=== PATIENT | female | born 1970 | race Caucasian/White ===

== ENCOUNTER 2018-04-11 14:51 | Outpatient (CLI) | payer OTHER ==
--- NOTE | 2018-04-12 11:25 | MRI Report ---
Reason: KNEE JOINT PAIN, LEFT Procedure Date: 04/11/2018 Accession Number: [id number] / [id number] Procedure: MRI - Knee LT W/O CPT Code: FULL RESULT: EXAM: LEFT KNEE MRI WITHOUT CONTRAST EXAM DATE: 04/11/2018 04:19 PM. CLINICAL HISTORY: Knee joint pain, left. COMPARISON: KNEE 3 VIEW LT 03/15/2018 8:50 AM. TECHNIQUE: Multiplanar, multisequence T1-weighted and fluid-sensitive sequences of the knee without contrast. Other: None. FINDINGS: Bones: Mild edema of the posterior half of the medial tibial condyle. Small medial and lateral compartment osteophytes. There is subchondral fluid in the medial patella facet. Articular Cartilage: Moderate erosion of the hyaline cartilage of the medial patellar facet. Minimal erosion of the hyaline cartilage of the medial and lateral compartment. Medial Meniscus: The medial meniscus is intact. Lateral Meniscus: The lateral meniscus is intact. Cruciate Ligaments: There is high T1 and T2 signal in the mid substance of the posterior cruciate ligament suggestive of a high-grade partial thickness or full-thickness tear. Collateral Ligaments: The medial collateral and lateral collateral ligamentous structures are intact. Tendons: The quadriceps, patellar, semimembranosus, and popliteus tendons are unremarkable. Musculature: No edema or fatty atrophy. Other: Moderate sized joint effusion. There is a small posterior periarticular cyst measuring approximately 1 x 0.5 x 1.2 cm posterior to the lateral femoral condyle. No loose bodies. The medial and lateral retinacula are intact. The subcutaneous tissues and fat pads are unremarkable. IMPRESSION: 1. 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 Minimal cartilage erosion in the medial and lateral compartments. 2. High-grade partial thickness or full-thickness tear of the mid substance of the PCL. 3. Moderate-sized joint effusion with a posterior periarticular cyst adjacent to the lateral femoral condyle. RADIA MUSCULOSKELETAL RADIOLOGY SECTION
== END 2018-04-11 14:52 | disposition home or self-care (01) ==
LOC: DI 14:51
PROVIDERS: ATTEND Orthopaedic Surgery Sports Medicine
DX: M17.12 Unilateral primary osteoarthritis, left knee (principal); S83.522A Sprain of posterior cruciate ligament of left knee, initial encounter; M25.462 Effusion, left knee; M25.862 Other specified joint disorders, left knee

== ENCOUNTER 2021-07-27 13:57 | Outpatient (CLI) | payer SELFPAY ==
--- NOTE | 2021-07-28 12:13 | Mammography Report ---
BILATERAL DIGITAL SCREENING MAMMOGRAM 3D/2D WITH EXAGGERATED CC: 07/27/2021 CLINICAL: Routine screening. Baseline exam. No prior exams were available for comparison. There are scattered fibroglandular elements in both br easts. No significant masses, calcifications, or other findings are seen in either breast. IMPRESSION: NEGATIVE There is no mammographic evidence of malignancy. A 1 year screening mammogram is recommended. This exam was interpreted at Station ID: [id number]. NOTE: For mammograms, a report in lay terms will be sent to the patient. Approximately 15% of breast malignancies will not be visualized mammographically. In the management of a palpable breast mass, a negative mammogram must not discourage biopsy of a clinically suspicious lesion. Electronically Signed By: Sukhdev Miller M.D. [facility] [place]:07/27/2021 17:41:53 ACR BI-RADS Category 1: Negative 3341F PARENCHYMAL PATTERN: (A) - The breast(s) demonstrate(s) scattered fibroglandular densities. BI-RADS CATEGORY: (1) - 1 RECOMMENDATION: (ANNUAL) - Recommend routine annual screening mammography. [id number] 1 year screening LATERALITY: (B)
== END 2021-07-27 13:58 | disposition home or self-care (01) ==
LOC: DI.S 13:57
DX: Z12.31 Encounter for screening mammogram for malignant neoplasm of breast (principal)

== ENCOUNTER 2022-12-12 08:00 | Outpatient (CLI) | payer OTHER | END 2022-12-12 23:59 | disposition home or self-care (01) | LOC: LAB 08:00 | PROVIDERS: ATTEND Nurse Practitioner | DX: L72.8 Other follicular cysts of the skin and subcutaneous tissue (principal) | CPT/HCPCS: 87070; 87181; 87205 ==